=== PATIENT | male | born 1985 | race Caucasian/White ===

== ENCOUNTER 2017-03-16 19:27 | Emergency (ER) | payer BC ==
[~2017-03-16] VITALS: Ht 182.9 cm; Wt 97.8 kg
[2017-03-16 19:34] VITALS: TEMP 37; Ht 182.9 cm; Wt 97.8 kg
[2017-03-16] MEDS ORDERED: XYLOCAINE 1%/SOD BICARB 20 ML VIAL INFIL ONE (20:00)
[2017-03-16 20:48] VITALS: BP 125/77; PULSE 86; O2SAT 100
--- NOTE | 2017-03-17 01:07 | EMERGENCY ROOM VISIT NOTE ---
ED Visit Note First contact with patient: 19:38 Chief Complaint: I cut my right middle and ring fingers. History of Present Illness: Mr. Youssef is a 32-year-old white male who ambulates into the ED complaining of lacerations to the right middle and ring fingers. Patient reports approximately 2 PM today, 5 hours ago, he was cutting wood with a chisel. He reports the chisel slipped and he sustained lacerations to the right middle and ring fingers. He reports he controlled bleeding but did not wash his wounds. Currently he is complaining of a stinging sensation in the area of his wounds. He rates his discomfort 1/10. His pain is nonradiating. Pain worsens with palpation. He has not identified any alleviating factors related to the pain. He has not taken any medications for pain prior to arrival at the hospital. Associated with his pain he reports he is having a numbness sensation over the the finger pad on the index finger and over the distal lateral aspect of the ring finger. Review of Systems: As noted above in history of present illness. Past Medical History: Patient denies. Current Medications: Patient denies. Allergies to Medications: Patient denies. Social History: Patient is currently employed; he lives with his and children and feels safe in his home environment; he denies tobacco and alcohol use. Tetanus Immunization Status: Patient reports 2007. Physical Examination: Vital Signs: Date Time Temp Pulse Resp B/P (MAP) Pulse Ox O2 Delivery O2 Flow Rate FiO2 03/16/17 20:48 86 17 125/77 100 03/16/17 19:34 37.0 95 18 146/88 98 Room Air GENERAL: 32-year-old male in mild distress due to pain, nontoxic-appearing, afebrile and hemodynamically stable. NEUROLOGICAL: Awake, alert and oriented to person, place and time. Answering questions appropriately and following commands. SKIN: Warm, dry and pink. Right Hand: Middle Finger: Over the anterior aspect patient has a 2.9 cm full-thickness laceration just inferior to the PIP. Ring Finger: Transfer care sitting over the anterior aspect of the PIP there is a 2.1 cm full-thickness laceration. No soft tissue eruptions or trauma noted. RIGHT HAND: No gross bony deformity. Soft tissue injuries as noted above. No active bleeding. Middle and index fingers are warm and pink and capillary refill is brisk. Patient has full range of motion in 4/5 muscle strength in flexion and extension of the MCP, PIP and DIP joints. Although patient complained of a numbness sensation over the distal finger she was able to perceive light touch. Throughout the fingers capillary refill was brisk. ED Course: Patient is assessed as noted above. Wound Repair: Complexity: Basic Verbal consent was obtained after the risks and benefits were explained. Disposal rubber finger splints were placed proximally the lacerations. The skin was prepped with betadine and a sterile field set. Wound edges of the wounds were anesthetized with a total of 3.8 ml buffered 1% lidocaine. The wounds were explored for foreign bodies and none found. Copious irrigation was performed using sterile saline. With direct pressure the bleeding subsided. Debridement was not performed. The middle finger wound edges were approximated using 5-0 Ethilon with 5 simple interrupted sutures and the ring finger wound edges were rocks abated with 5-0 Ethilon and 4 simple interrupted sutures. Hemostasis and excellent approximation was achieved. Antibacterial ointment and a sterile dressing applied. Because lacerations were close to the PIP joint I did place both fingers in a metal finger splint for a couple days for healing. No complications and the patient tolerated the procedure well. Patient was educated about tonight's findings and instructed on his treatment plan; he verbalizes understanding and agreement with this plan. Clinical Impression: Lacerations of the right middle and ring fingers. Disposition: Patient discharged home in stable condition; prior to departure he was reassessed and subjectively reported he was pain-free. I did reassess his neurovascular status and he was still able to perceive light touch. Plan: Comfort measures, wound care, and signs of infection were discussed with the patient. I did encourage the patient to follow-up with Dr. Ro, hand specialist, if he continues to perceive numbness in the fingers. Patient was encouraged to follow-up with PCP or return to the ED for signs of infection and/or suture removal in 10-12 days.
== END 2017-03-16 20:50 | disposition home or self-care (01) ==
LOC: C.EDB 19:32 → C.EDD 20:50
DX: S61.212A Laceration without foreign body of right middle finger without damage to nail, initial encounter (principal); S61.214A Laceration without foreign body of right ring finger without damage to nail, initial encounter; W31.2XXA Contact with powered woodworking and forming machines, initial encounter